=== PATIENT | female | born 1990 | race Caucasian/White ===

== ENCOUNTER 2016-11-23 23:50 | Emergency (ER) | payer OTHER ==
[2016-11-24 00:59] VITALS: TEMP 98.3; BMI 19.5
--- NOTE | 2016-11-24 01:06 | PDOC ---
History of Present Illness - General History Source: Patient Exam Limitations: No Limitations - History of Present Illness Initial Comments: 11/24/16 01:17 The patient is a 26 year old female with no significant past medical history of who presents to the ED for acute onset of pain to the right upper back, right upper chest, right shoulder, and right arm region. States she was in her usual state of health prior to going to bed when woke up with a sudden pain. She reports SOB that is worsen upon deep inspiration. Admits to smoking 2 ppd. Denies oral contraceptives. Denies h/o of asthma or copd. States she has a h/o of irregular menses and gets her period about once a year. Denies lightheadedness, diaphoresis, jaw pain, palpitations, leg swelling, nausea, or vomiting. Denies any sick contacts or recent travels. The patient denies fever, chills, cough, abdominal pain, and diarrhea. Allergies: NKDA Social History: Current smoker (2 ppd). No alcohol or drug use reported. Past Surgical History: None reported PCP: None reported <Nori Rodriguez - Last Filed: 11/24/16 01:43> - General History Source: Patient <RegSahil - Last Filed: 11/24/16 03:52> - General Chief Complaint: Pain, Acute Stated Complaint: RT ARM PAIN Time Seen by Provider: 11/24/16 01:01 Past History <Nori Rodriguez - Last Filed: 11/24/16 01:43> - Immunization History Td Vaccination: Yes - Psycho/Social/Smoking Cessation Hx Anxiety: No Suicidal Ideation: No Smoking Status: No Smoking History: Current every day smoker Number of Cigarettes Smoked Daily: 0 Information on smoking cessation initiated: No <Sahil Hernandez - Last Filed: 11/24/16 03:52> - Past Medical History Allergies/Adverse Reactions: Allergies Allergy/AdvReac Type Severity Reaction Status Date / Time No Known Allergies Allergy Verified 02/24/13 13:52 Home Medications: Ambulatory Orders No Home Medications 0 dose .ROUTE UTDICT 07/01/12 Azithromycin [Zithromax -] 250 mg PO UTDICT #6 tab 11/24/16 Review of Systems - Review of Systems Able to Perform ROS?: Yes Comments:: 11/24/16 01:17 CONSTITUTIONAL: Absent: fever, no chills, no fatigue EYES: Absent: visual changes ENT: Absent: ear pain, no sore throat CARDIOVASCULAR: +right upper chest pain Absent: no palpitations RESPIRATORY: +SOB Absent: cough GI: Absent: abdominal pain, no nausea, no vomiting, no constipation, no diarrhea GENITOURINARY: Absent: dysuria, no frequency, no hematuria MUSCULOSKELETAL: +right upper back pain, right shoulder pain, right arm pain SKIN: Absent: rash NEURO: Absent: headache <Nori Rodriguez - Last Filed: 11/24/16 01:43> *Physical Exam - Vital Signs Last Vital Signs Temp Pulse Resp BP Pulse Ox 98.3 F 70 20 125/69 100 11/24/16 00:57 11/24/16 00:57 11/24/16 00:57 11/24/16 00:57 11/24/16 00:57 - Physical Exam Comments: 11/24/16 01:17 GENERAL: Well-appearing, well-nourished. No apparent distress. HEENT: Normocephalic, atraumatic. PERRL, EOM intact. CARDIOVASCULAR: Regular rate and rhythm. No murmurs, rubs, or gallops. Distal pulses are 2+ and symmetric. PULMONARY: Mild of respiratory distress. Moderate conversational dyspnea. No retractions. Very decreased breath sounds bilaterally with occasional crackles to the right lung field. ABDOMEN: Soft, non-distended, non-tender. MUSCULOSKELETAL Normal range of motion at all joints. No bony deformities or tenderness. No CVA tenderness. EXTREMITIES: No cyanosis. No clubbing. No edema. No calf tenderness. SKIN: Warm, dry. No rash NEUROLOGICAL: No focal neurological deficits. <Nori Rodriguez - Last Filed: 11/24/16 01:43> - Vital Signs Last Vital Signs Temp Pulse Resp BP Pulse Ox 98.3 F 70 20 125/69 100 11/24/16 00:57 11/24/16 00:57 11/24/16 00:57 11/24/16 00:57 11/24/16 00:57 <Sahil Hernandez - Last Filed: 11/24/16 03:52> Heart Score/ECG Review - ECG Impressions Comment:: 11/24/16 01:43 Sinus bradycardia with sinus arrhythmia with short OK @57bpm Otherwise normal ECG <Nori Rodriguez - Last Filed: 11/24/16 01:43> ED Treatment Course - LABORATORY CBC & Chemistry Diagram: 11/24/16 01:22 11/24/16 01:22 <Nori Rodriguez - Last Filed: 11/24/16 01:43> - LABORATORY CBC & Chemistry Diagram: 11/24/16 01:22 11/24/16 01:22 <Sahil Hernandez - Last Filed: 11/24/16 03:52> Medical Decision Making - Medical Decision Making 11/24/16 03:52 Dr. Hernandez: The scribe's documentation has been prepared under my direction and personally reviewed by me in its entirery. I confirm that the note above accurately reflects all work, treatment, procedures, and medical decision making performed by me. <Sahil Hernandez - Last Filed: 11/24/16 03:52> *DC/Admit/Observation/Transfer - Attestations Scribe Attestion: 11/24/16 01:17 Documentation prepared by Nori Rodriguez, acting as biomedical equipment specialist for Sahil Hernandez MD/. <Nori Rodriguez - Last Filed: 11/24/16 01:43> - Discharge Dispostion Admit: No <Sahil Hernandez - Last Filed: 11/24/16 03:52> Diagnosis at time of Disposition: Bronchitis Chest pain Qualifiers: Chest pain type: unspecified Qualified Code(s): R07.9 - Chest pain, unspecified - Discharge Dispostion Disposition: HOME Condition at time of disposition: Stable - Referrals Referrals: Hung Eldridge MD [Staff Physician] - Dexter Camarillo MD [Staff Physician] - - Patient Instructions Printed Discharge Instructions: DI for Acute Bronchitis, DI for Chest Pain, DI for Shortness of Breath Additional Instructions: Please follow up with a commodity management specialist in a few days. take antibiotic as directed. Take an 81mg Aspirin daily until you see the commodity management specialist. Decrease and eventually avoid smoking as much as possible.
[2016-11-24] MEDS ORDERED: ALBUTEROL SO4 2.5/IPRATROPIUM 0.5 INH SOL 3 ML VIAL.NEB. NEB STA ×3 (01:08→02:32)
[2016-11-24] MEDS ORDERED: MAGNESIUM SULF 50% (8.12 MEQ/2 ML-1 GM VIAL) IVPB ONE (01:08)
[2016-11-24] MEDS ORDERED: methylPREDNISolone NA SUCC 125 MG/2 ML VIAL IVPB ONE (01:08)
[2016-11-24] MEDS ORDERED: methylPREDNISolone NA SUCC 125 MG/2 ML VIAL ONE (01:12)
[2016-11-24] MEDS ORDERED: MAGNESIUM SULF 50% (8.12 MEQ/2 ML-1 GM VIAL) ONE (01:13)
[2016-11-24 01:30] LABS: BASOPHIL 0.8 % (0-2.0); EOSINOPHIL 2.6 % (0-4.5); MCH 29.6 pg (25.7-33.7); MCHC 33.2 g/dl (32.0-36.0); MEAN CELL VOLUME 89.2 fl (80-96); MEAN PLT VOLUME 7.5 fl (7.5-11.1); NEUTROPHILS 62.5 % (42.8-82.8); PLATELET COUNT 337 K/MM3 (134-434); RDW 12.6 % (11.6-15.6); WHITE BLOOD COUNT 9.8 K/mm3 (4.0-10.0)
[2016-11-24 01:50] LABS: INR 1.06 (0.82-1.09); PROTHROMBIN TIME (PATIENT) 11.7 SEC (9.98-11.88)
[2016-11-24 01:58] LABS: ALBUMIN 3.8 g/dl (3.4-5.0); ANION GAP 7 (8-16); BILIRUBIN,TOTAL 0.4 mg/dL (0.2-1.0); CALCIUM 8.9 mg/dL (8.5-10.1); CO2 31 mmol/L (21-32); CREATININE 0.8 mg/dL (0.55-1.02); GLUCOSE,RANDOM 103 mg/dL (74-106); MAGNESIUM 2.3 mg/dL (1.8-2.4); SGOT/AST 25 U/L (15-37); SGPT/ALT 21 U/L (12-78); TOT PROT 6.8 g/dl (6.4-8.2)
[2016-11-24 02:01] LABS: ALK PHOS 70 U/L (45-117); TROPONIN I < 0.02 ng/ml (0.00-0.05)
[2016-11-24] MEDS ORDERED: KETOROLAC TROMETHAMINE 30 MG/1 ML VIAL IVPUSH ONE (02:32)
[2016-11-24] MEDS ORDERED: AZITHROMYCIN IVPB 500 MG in DEXTROSE 5%-WATER - 250 ML IVPB ONE (02:33)
[2016-11-24] MEDS ORDERED: AZITHROMYCIN IVPB 250 ML IVPB ONE (02:38)
[2016-11-24] MEDS ORDERED: KETOROLAC TROMETHAMINE 30 MG/1 ML VIAL ONE (02:38)
[2016-11-24] MEDS ORDERED: CEFTRIAXONE 50 ML ONE (02:39)
[2016-11-24] MEDS ORDERED: NITROGLYCERIN 2% OINTMENT - 1GM PACKET TD ONE ×2 (03:04→03:07)
[2016-11-24 03:25] LABS: TROPONIN I < 0.02 ng/ml (0.00-0.05)
[2016-11-24 04:12] VITALS: BP 112/55; PULSE 88
--- NOTE | 2016-11-24 11:48 | EKG ---
Test Reason : Blood Pressure : / mmHG Vent. Rate : 057 BPM Atrial Rate : 057 BPM P-R Int : 104 ms QRS Dur : 096 ms QT Int : 414 ms P-R-T Axes : 037 069 037 degrees QTc Int : 402 ms SINUS BRADYCARDIA WITH SINUS ARRHYTHMIA WITH SHORT MD OTHERWISE NORMAL ECG NO PREVIOUS ECGS AVAILABLE Confirmed by DEVIN OVIEDO, JASSI ([id number]) on 11/24/2016 11:47:45 AM Referred By: Confirmed By:JASSI BELTRAN MD
== END 2016-11-24 04:15 | disposition home or self-care (01) ==
LOC: JER 23:50
PROC: 3E0F7GC Introduction of Other Therapeutic Substance into Respiratory Tract, Via Natural or Artificial Opening (ICD-10-PCS; principal; 2016-11-23)
PROC: 3E0F7GC Introduction of Other Therapeutic Substance into Respiratory Tract, Via Natural or Artificial Opening (ICD-10-PCS; 2016-11-23)
PROC: 3E03329 Introduction of Other Anti-infective into Peripheral Vein, Percutaneous Approach (ICD-10-PCS; 2016-11-23)
PROC: 3E03329 Introduction of Other Anti-infective into Peripheral Vein, Percutaneous Approach (ICD-10-PCS; 2016-11-23)
PROC: 3E0333Z Introduction of Anti-inflammatory into Peripheral Vein, Percutaneous Approach (ICD-10-PCS; 2016-11-23)
PROC: 3E0333Z Introduction of Anti-inflammatory into Peripheral Vein, Percutaneous Approach (ICD-10-PCS; 2016-11-23)
PROC: 3E033GC Introduction of Other Therapeutic Substance into Peripheral Vein, Percutaneous Approach (ICD-10-PCS; 2016-11-23)
DX: J20.9 Acute bronchitis, unspecified (principal); F17.210 Nicotine dependence, cigarettes, uncomplicated
CPT/HCPCS: 36415; 71020-TC; 80053; 82550; 82553; 83735; 84484; 84703; 85025; 85379; 85610; 93005; 93010; 94640; 96365; 96375; 99283-25